=== PATIENT | male | born 1970 | race Caucasian/White ===

== ENCOUNTER → 2024-12-01 12:31 | Outpatient (REF) | payer BC, SELFPAY | LOC: RCS 12:31 | PROVIDERS: ATTENDING PHYSICIAN Nurse Practitioner Family; FAMILY PHYSICIAN Internal Medicine | DX: R06.02 Shortness of breath (principal); R42 Dizziness and giddiness; E78.00 Pure hypercholesterolemia, unspecified | CPT/HCPCS: 93017; 93225; 93226 ==

== ENCOUNTER → 2024-12-03 13:24 | Outpatient (REF) | payer BC, SELFPAY | LOC: RCS 13:24 | PROVIDERS: ATTENDING PHYSICIAN Nurse Practitioner Family; FAMILY PHYSICIAN Internal Medicine | DX: R06.02 Shortness of breath (principal); R42 Dizziness and giddiness; E78.00 Pure hypercholesterolemia, unspecified | CPT/HCPCS: 36415; 93005; 93306 ==

== ENCOUNTER 2025-01-30 10:06 | Emergency (ER) | payer BC, SELFPAY ==
[2025-01-30 10:08] VITALS: BP 148/94
--- NOTE | 2025-01-30 11:49 | EDRN ---
Pt states that he has been feeling anxiety that is much worse now, lost his job in August. Pt was recently started on Cymbalta. Spouse states pt has been having episodes of crying, thinking people are 'ouat to get him,' inablility to comprehend what
he reads.
--- NOTE | 2025-01-30 11:55 | ED.GENMED ---
History of Present Illness
General
Chief Complaint: Crisis Evaluation
Source: patient and spouse
Time Seen by Provider: 01/30/25 11:26
History of Present Illness
History of Present Illness:
54-year-old male with past medical history of previous squamous cell carcinoma of the tongue/neck, wkg-isonmtm-syhyoqeyc diabetes, hypothyroidism presenting to the ER with for evaluation of increased depression and anxiety over the last few
weeks, seen by primary care provider on Sunday and started on duloxetine but states patient seems to be worsening despite this medication. endorses significant anxiety, increased pacing around the house, crying but patient stating no SI,
HI, hallucinations, alcohol or other substance use. They ultimately came to the ER today in hopes of getting further outpatient based resources and help for the patient. Patient believes a lot of this is related to difficulty finding a job after
being let go from his job back in August of this year.
Past History
Past History
ED Past Medical History: Cancer, Hypothyroidism, Psychiatric and Other (Squamous cell cancer of the base of the tongue and neck, sleep apnea)
ED Past Surgical History: Other (Surgery for tracheostomy and a port)
Social History
Tobacco: Non-smoker
Alcohol: None
Drug: None
Personal:
Living: with family
Employment: Employed
Family History
Family History: Other (Noncontributory)
Review of Systems
Review of Systems
All Other Systems: ROS reviewed and negative except as documented in HPI and ROS
Phy Exam
Physical Exam
Physical Exam:
GENERAL: Alert , in no apparent distress
EYE: conjunctiva clear
Head: Normocephalic atraumatic
NECK: Supple,
ENT: mmm.
LUNGS: no acute respiratory distress
NEUROLOGICAL: Alert and oriented
SKIN: Warm and dry, skin intact.
MUSCULOSKELETAL: well perfused.
PSYCH: Normal and appropriate interaction.
Scores
Heart Failure Risk
Heart Failure Risk Score: Not Applicable
Heart Score for Chest Pain Patients
STEMI patient?: Not applicable
Withdrawal Assessment of Alcohol
Withdrawal Assessment Completed?: Not applicable
Course
Orders/Labs/Results
Orders:
Orders
01/30/25 11:51
Crisis Consult Urgent
Reason for Consult: depression/anxiety
observation [ED Special Safety Observation] ONCE
Observation level: One to Two
Vital Signs
Initial and Last Documented VS:
Initial Vital Signs
Temp Pulse Resp BP Pulse Ox
98.1 F 85 20 148/94 98
01/30/25 10:08 01/30/25 10:08 01/30/25 10:08 01/30/25 10:08 01/30/25 10:08
Last Documented Vital Signs
Temp Pulse Resp BP Pulse Ox
98.1 F 91 16 165/104 99
01/30/25 10:08 01/30/25 12:07 01/30/25 12:07 01/30/25 12:07 01/30/25 12:07
MDM/Problems Addressed
Differential Diagnosis Includes:
Anxiety/depression
No current symptoms to suggest suicidal ideation
No symptoms or history to suggest intoxication
MDM/Problems Addressed:
54-year-old male presenting to the ER for evaluation of increased anxiety and depression over the last few days/weeks. Seen by primary care provider earlier this week and started on duloxetine but no reported improvement. Patient and came to
the ER today in hopes for further outpatient care. At this time patient is medically cleared for crisis screening.
*Pulse Oximetry
SaO2: 98
Oxygen Mode of Delivery: Room air
Patient hypoxic: no
*Critical Care Note
Total Time (30-74mins, 75-104mins- exclusive of procedures): Not Applicable
Patient Management
Escalation/DeEscalation of care consider admission/obs:
seen by crisis staff, cleared for discharge and was given outpatient referal. Aware of return precautions to the ED
ED Attending Note
-
Portions of this chart may have been created with voice recognition software.� Occasional wrong word or��sound alike� substitutions may have occurred due to the inherent limitations of voice recognition software.
Discharge Plan
Departure
Patient Disposition: Home (Routine Discharge)
Date of Disposition: 01/30/25
Time of Disposition: 13:13
Patient with high blood pressure during this ER visit?: Yes
Discharge Problem:
Anxiety, Depression
Instructions: Depression, Adult (DC)
Prescriptions:
No Action
fentanyl 50 MCG patch 72 hour
50 mcg transdermal Q72H
Patient Comments:
due today to be changed. left shoulder.
oxycodone 5 MG/5 ML solution
20 mg PO Q3HPRN PRN (Reason: pain)
scopolamine base 1 PATCH patch 3 day
2 patch transdermal Q72H
Patient Comments:
needs to be changed today. behind left ear.
glycopyrrolate 0.4 MG/2 ML syringe
0.2 mg IV Q4HPRN PRN (Reason: excessive secretions)
fluconazole [Diflucan] 40 MG/ML suspension for reconstitution
200 mg feeding tube BID
pantoprazole 40 MG tablet,delayed release (DR/EC)
40 mg PO BID Qty: 60 0RF
Glycopyrrolate
1 - 1.5 mg PO PRN PRN (Reason: dries secretions)
cephalexin 50 MG/ML suspension for reconstitution
500 mg feeding tube TID Qty: 220 0RF
Referrals:
UNKNOWN,NO INTERVIEW [Family Provider]
Interventions
Interventions:
*Risk Screen - Suicide Last Done: 01/30/25 10:08
*General Assessment Last Done: 01/30/25 12:49
*Neglect/Abuse Screening Last Done: 01/30/25 10:08
*ED- Fall Risk Assessment Last Done: 01/30/25 12:49
*ED COVID-19 Vaccine History Last Done: 01/30/25 12:49
*Nursing Disposition Last Done: 01/30/25 13:25
ED-Psychological Assessment Last Done: 01/30/25 12:03
Discharge Date and Time
Discharge Date/Time: 01/30/25 13:34
Print Language: DIVEHI
[2025-01-30 12:02] VITALS: BMI 31.7
[2025-01-30 12:07] VITALS: BP 165/104
--- NOTE | 2025-01-30 12:08 | EDRN ---
Pt is awaiting crisis consult at this time,.
--- NOTE | 2025-01-30 12:49 | EDRN ---
[employer] worker in room speaking w/ pt at this time.
--- NOTE | 2025-01-30 12:50 | EDRN ---
Non par diet tray ordered for pt.
== END 2025-01-30 13:34 | disposition home or self-care (01) ==
LOC: EMR 10:06
PROVIDERS: EMERGENCY PHYSICIAN Emergency Medicine
DX: F41.8 Other specified anxiety disorders (principal); E03.9 Hypothyroidism, unspecified; E11.9 Type 2 diabetes mellitus without complications; G47.30 Sleep apnea, unspecified; Z85.810 Personal history of malignant neoplasm of tongue
CPT/HCPCS: 99282